=== PATIENT | male | born 1985 | race Caucasian/White ===

== ENCOUNTER 2021-07-24 06:26 | Emergency (ER) | payer OTHER, SELFPAY ==
--- NOTE | ~2021-07-24 | CT_ITS ---
EXAMINATION:CT diagnostic chest wo con DATE: 07/24/2021 08:30 INDICATION: Abnormal chest radiograph. TECHNIQUE: Computed tomography (CT) of the chest was performed without intravenous contrast. Automate d exposure control and iterative reconstruction technique were employed. The dose-length product (DLP ) was 152.56 mGy-cm. COMPARISON: Chest 2 views 07/24/2021 FINDINGS: The lungs demonstrate mild atelectasis. No pleural effusion. The heart size is normal. No p ericardial effusion. There is bilateral gynecomastia. There are healing fractures of the right second and third ribs. There is mild thoracic spondylosis. IMPRESSION: 1. Healing fractures of the right second and third ribs correlating with the chest radiograph abnorma lity. Reviewed, dictated and finalized at location A. IMPRESSION: 1. Healing fractures of the right second and third ribs correlating with the ch est radiograph abnormality.
--- NOTE | ~2021-07-24 | CT_ITS ---
EXAMINATION: CT brain wo con DATE: 07/24/2021 07:31 INDICATION: Confusion. TECHNIQUE: Computed tomography (CT) of the head was performed without intravenous contrast. The mA wa s adjusted according to patient size. Iterative reconstruction technique was employed. The dose-lengt h product was 605.33 mGy-cm. COMPARISON: None FINDINGS: There is no intracranial hemorrhage. The pituitary is enlarged with height of 11 mm. There is low attenuation in the central nhung. The ventricles are normal in size. The orbits are normal. The re is mild mucosal thickening in right sphenoid sinus. The mastoid air cells are normal. IMPRESSION: 1. Low attenuation in the central nhung, which may be seen with osmotic myelinolysis. The differential diagnosis includes other etiologies of encephalomalacia such as old hemorrhage. 2. Enlarged pituitary suspicious for neoplasm such as adenoma. Brain MRI without and with contrast is recommended. Reviewed, dictated and finalized at location A. IMPRESSION: 1. Low attenuation in the central nhung, which may be seen with osmotic myelinol ysis. The differential diagnosis includes other etiologies of encephalomalacia such as old hemorrhage. 2. Enlarged pituitary suspicious for neoplasm such as adenoma. Brain MRI withou t and with contrast is recommended.
--- NOTE | ~2021-07-24 | XR_ITS ---
EXAMINATION: XR chest 2V DATE: 07/24/2021 07:38 INDICATION: Altered mental status. TECHNIQUE: Frontal and lateral views of the chest were obtained on 3 radiographs. COMPARISON: None. FINDINGS: The patient is rotated on all views. There are nodules in right mid and upper lung zones. N o pleural effusion or pneumothorax. The heart size is normal. IMPRESSION: 1. Nodules in right mid and upper lung zones, which may be seen with infection or malignancy or heali ng rib fractures. Noncontrast chest CT is recommended. Reviewed, dictated and finalized at location A. IMPRESSION: 1. Nodules in right mid and upper lung zones, which may be seen with infection or malignancy or healing rib fractures. Noncontrast chest CT is recommended.
[2021-07-24 06:41] VITALS: BP 151/94; PULSE 92; RESP 18; TEMP 36.9; O2SAT 98
[2021-07-24 06:46] VITALS: BP 143/100; PULSE 91; RESP 18
--- NOTE | 2021-07-24 07:08 | ED.RECABL ---
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 History is not obtainable from the patient so all history is obtained from nursing staff and per chart review. Overnight, staff at the facility thought that the patient was confused, but this morning patient apparently is back to baseline. Due to the intermittent confusion, patient was sent here for evaluation. At the time of my evaluation, patient is oriented to person, not to place or time. He is responding appropriately, he cannot provide any history otherwise. He reports pain all over. He denies focal pain. Mother states that he has been going downhill for a while. He is no longer ambulatory. Patient does not have a primary care physician or neurologist. He was hospitalized at [facility] for 10 days this month for alcohol withdrawal per family. I contacted [facility] who states that patient was admitted their recently for acute alcohol withdrawl, DTs and was noted to have central pontine demyelination on MRI while inpatient. Pt was noted to be hyponatremic to 124 and per hospitalist there this was not correctly too quickly. They thought this to be chronic due to drinking history. Related Data Allergies Allergy/AdvReac Type Severity Reaction Status Date / Time No Known Allergies Allergy Verified 07/24/21 06:57 Review of Systems Review of Systems: ROS unobtainable: Yes unobtainable due to medical condition [facility] Social History Social History (Updated 07/24/21 @ 08:03 by Faith Membreno MD) Smoking status: Former smoker Alcohol intake: former Substance use: unknown Living arrangements: skilled nursing Gender identity (if verbalized by the patient): Male Exam Narrative: GENERAL: Awake, alert, conversant HEAD: Normocephalic, atraumatic. EYES: PERRLA and EOMI. ENT: Nares clear, no rhinorrhea or epistaxis. Mucous membranes moist. NECK: Supple. CHEST: No respiratory distress, breathing even and non labored HEART: Regular rate, sinus rhythm ABDOMEN:Non distended, non tender EXTREMITIES: Contractures, atrophy of the bilateral lower extremities SKIN: Warm, dry, no rash. NEURO:No focal deficits. Alert and oriented x1 Course Vital Signs Vital signs: Vital Signs Temperature 36.9 C 07/24/21 06:41 Pulse Rate 92 07/24/21 06:41 Respiratory Rate 18 07/24/21 06:41 Blood Pressure 151/94 H 07/24/21 06:41 Pulse Oximetry 98 07/24/21 06:41 Temperature 36.8 C 07/24/21 08:09 Pulse Rate 88 07/24/21 07:38 Respiratory Rate 18 07/24/21 07:38 Blood Pressure 158/108 H 07/24/21 07:38 Pulse Oximetry 98 07/24/21 07:38 MDM - Recheck/Abnormal Lab/Rx MDM Narrative Medical decision making narrative: Patient presenting for evaluation of elevated blood pressure readings. At the time of assessment, patient is mildly hypertensive 150 systolic. Otherwise, he seems to be at baseline after discussion with family. Laboratory results are reassuring. Mild leukocytosis, but no other nidus of infection. No acute kidney injury or electrolyte derangement. No evidence of abnormalities on CT head or chest x-ray. It took many attempts to get a urine sample, after I spoke with the patient's mother she did want us to do the urine catheterization although the patient continued to refuse it. Did obtain straight cath but after 3 attempts, there was quite a bit of blood present. Although it is not consistent with infection. Patient t
--- NOTE | 2021-07-24 07:21 | PC.NURSE ---
Went to CT.
[2021-07-24 07:38] VITALS: BP 158/108; PULSE 88; RESP 18; O2SAT 98
--- NOTE | 2021-07-24 08:04 | ECG_ITS ---
Measurements Intervals [place] Rate: 97 P: 47 GA: 136 QRS: 55 QRSD: 74 T: 56 QT: 385 QTc: 489 Interpretive Statements SINUS RHYTHM NORMAL ECG NO PREVIOUS ECG AVAILABLE FOR COMPARISON Electronically Signed On 07-24-2021 16:19:51 CDT by Eddie Nascimento M.D.
--- NOTE | 2021-07-24 08:07 | PC.NURSE ---
Attempted to straight cath patient. PT was uncooperative with staff. Attempted to obtain UA via straight cath and was unable to collect.
[2021-07-24 08:08] LABS: Basophils Percent Auto 0.4 % (0.2-1.2); Eosinophils Absolute Auto 0.2 K/mm3 (0-0.3); Eosinophils Percent Auto 1.4 % (0-4.4); Hematocrit 34.2 % (42.0-52.0); Hemoglobin 10.9 g/dL (14.0-18.0); Immature Granulocyte Absolute 0.05 K/mm3 (0.00-0.031); Immature Granulocyte Percent A 0.5 % (0-0.5); Lymphocytes Absolute Auto 1.18 K/mm3 (0.9-3.2); Lymphocytes Percent Auto 10.8 % (18.3-44.2); Mean Corpuscular HGB Conc 31.9 g/dl (32-36); Mean Corpuscular Hemoglobin 33.1 pg (26-34); Mean Platelet Volume 9.1 fl (7.4-10.4); Monocytes Absolute Auto 1.1 K/mm3 (0.1-0.6); Monocytes Percent Auto 9.6 % (2.6-8.5); Neutrophils Absolute Auto 8.5 K/mm3 (1.3-6.7); Neutrophils Percent Auto 77.3 % (45.5-73.1); Platelet Count Result 444 k/mm3 (150-375); Red Blood Count 3.29 M/mm3 (4.6-6.20); White Blood Count 10.9 K/mm3 (4.5-10.0)
[2021-07-24 08:09] VITALS: TEMP 36.8
[2021-07-24 08:11] LABS: Glucose Point of Care 101 mg/dl (65-105)
[2021-07-24 08:18] LABS: Alanine Aminotransferase 31 U/L (4-50); Albumin Level 3.4 g/dL (3.5-5.1); Alkaline Phosphatase 81 U/L (38-126); Anion Gap 7 mmol/L (8-16); Aspartate Amino Transferase 54 U/L (17-59); Bilirubin,Total 0.7 mg/dL (0.2-1.3); Blood Urea Nitrogen 9 mg/dL (9-20); Calcium 8.9 mg/dL (8.4-10.2); Carbon Dioxide 30 mmol/L (22-30); Chloride 104 mmol/L (98-107); Estimated Glomerular Filt Rate > 60; Glucose 115 mg/dL (65-110); Phosphorus 4.1 mg/dL (2.5-4.5); Potassium 3.6 mmol/L (3.4-5.0); Sodium 141 mmol/L (137-145)
[2021-07-24 08:25] LABS: Beta-Hydroxybutyrate/Acetoacetate 0.55 mmol/L (0.02-0.27)
[2021-07-24 08:32] LABS: Ammonia < 9 umol/L (9-30)
[2021-07-24] MEDS: SODIUM CHLORIDE 0.9% IV 500 ML 999 ML IV CONT (09:51)
[2021-07-24 11:38] LABS: Add Urine Microscopic? YES; Appearance Urine Cloudy (Clear); Bilirubin Urine Negative (Negative); Blood Urine 3+ (Negative); Color Urine Amber (Yellow); Glucose Urine UA Negative (Negative); Ketones Urine Trace mg/dL (Negative); Leukocyte Esterase Ur Negative LEU/UL (Negative); Mucus Urine Rare /lpf; Nitrate Urine Negative (Negative); Protein Urine 2+ mg/dL (Negative); RBC Urine >75 /hpf (0-2); Squamous Epithelial Cell Urine Rare /hpf (Few); Urobilinogen Urine Negative mg/dL (<2.0); WBC Urine 21-30 /hpf
[2021-07-24] MEDS: SODIUM CHLORIDE 0.9% IV 1,000 ML 999 ML IV CONT (11:42)
== END 2021-07-24 18:26 ==
PROVIDERS: Emergency Provider Emergency Medicine
DX: G37.9 Demyelinating disease of central nervous system, unspecified (principal); G40.909 Epilepsy, unspecified, not intractable, without status epilepticus; I10 Essential (primary) hypertension; G31.2 Degeneration of nervous system due to alcohol; Z87.891 Personal history of nicotine dependence
CPT/HCPCS: 36415; 70450; 71046; 71250; 80053; 81001; 82010; 82140; 82948; 83735; 84100; 85025; 87086; 93005; 96360; 96361; 99284; J7030; J7040

== ENCOUNTER 2021-08-13 12:14 | Emergency (ER) | payer OTHER, SELFPAY ==
[2021-08-13] VITALS (12 sets, daily range): BP systolic 129–151; BP diastolic 85–109; PULSE 76–98; RESP 14–19; TEMP 36.2; O2SAT 100
--- NOTE | ~2021-08-13 | CT_ITS ---
EXAMINATION: CT brain wo con DATE: 08/13/2021 15:33 INDICATION: Seizure TECHNIQUE: Computed tomography (CT) of the head was performed without intravenous contrast. The mA wa s adjusted according to patient size. Iterative reconstruction technique was employed. The dose-lengt h product was 605.33 mGy-cm. COMPARISON: 07/24/2021 FINDINGS: No acute intracranial hemorrhage or extra-axial fluid collection. No hydrocephalus, mass, or herniation. No acute ischemic infarct. Unremarkable dural venous sinus attenuation. No acute osseous abnormality. The aerated spaces are clear. Mild chronic atrophy. Enlarged pituitary, suspicious for neoplasm such as adenoma. Evolving hypodensi ty in the central nhung may reflect evolving encephalomalacia osmotic myelinolysis or prior hemorrhage . IMPRESSION: No acute intracranial process. Chronic findings detailed above. Prior recommendation for outpatient p ituitary MRI is unchanged. Reviewed, dictated and finalized at location K. IMPRESSION: No acute intracranial process. Chronic findings detailed above. Prior recommend ation for outpatient pituitary MRI is unchanged.
[2021-08-13 12:58] LABS: Basophils Percent Auto 0.5 % (0.2-1.2); Eosinophils Absolute Auto 0.2 K/mm3 (0-0.3); Hematocrit 35.3 % (42.0-52.0); Hemoglobin 10.9 g/dL (14.0-18.0); Immature Granulocyte Absolute 0.03 K/mm3 (0.00-0.031); Immature Granulocyte Percent A 0.5 % (0-0.5); Lymphocytes Absolute Auto 1.67 K/mm3 (0.9-3.2); Lymphocytes Percent Auto 25.2 % (18.3-44.2); Mean Corpuscular HGB Conc 30.9 g/dl (32-36); Mean Corpuscular Hemoglobin 31.1 pg (26-34); Mean Corpuscular Volume 100.6 fl (80-100); Mean Platelet Volume 9.1 fl (7.4-10.4); Monocytes Absolute Auto 0.9 K/mm3 (0.1-0.6); Monocytes Percent Auto 13.1 % (2.6-8.5); Neutrophils Absolute Auto 3.8 K/mm3 (1.3-6.7); Neutrophils Percent Auto 57.7 % (45.5-73.1); Platelet Count Result 346 k/mm3 (150-375); Red Blood Count 3.51 M/mm3 (4.6-6.20); Red Cell Distribution Width 14.3 % (11.5-14.5); White Blood Count 6.6 K/mm3 (4.5-10.0)
[2021-08-13 13:13] LABS: Alanine Aminotransferase 16 U/L (6-50); Albumin Level 3.2 g/dL (3.5-5.1); Alkaline Phosphatase 257 U/L (38-126); Anion Gap 4 mmol/L (8-16); Aspartate Amino Transferase 25 U/L (17-59); Bilirubin,Total 0.3 mg/dL (0.2-1.3); Blood Urea Nitrogen 6 mg/dL (9-20); Calcium 8.6 mg/dL (8.4-10.2); Carbon Dioxide 29 mmol/L (22-30); Chloride 105 mmol/L (98-107); Estimated CRCL calculation 201 ml/min; Estimated Glomerular Filt Rate > 60; Glucose 94 mg/dL (65-110); Potassium 3.3 mmol/L (3.4-5.0); Sodium 138 mmol/L (137-145)
[2021-08-13 13:16] LABS: Phenytoin Dilantin < 3 ug/mL (10-20)
[2021-08-13 13:19] LABS: Valproic Acid < 10.0 ug/mL (50-120)
--- NOTE | 2021-08-13 14:56 | ED.SEIZURE ---
HPI - Seizure General Chief Complaint: Seizure Stated Complaint: SEIZURES Time Seen by Provider: 08/13/21 12:17 Source: EMS and RN notes reviewed Mode of arrival: EMS History of Present Illness HPI Narrative: Patient brought from [facility] by ambulance because of seizure-like activity. 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 Patient has been at the [facility] for the last 2 to 3 weeks, transferred from [facility] to the [facility]. For nonspecific reason. Patient used to live with his mom prior to hospitalization. The mother is telling me that patient been having intermittent seizures for almost 1 year, never been on any antiseizure medication. The [facility] staff telling me that patient had at least 4 episodes of seizure since 830 this morning, received diazepam 10 mg rectally was some improvement then 1 hour later seizure is back x3. Currently patient at his baseline, knowing his name only. Otherwise disoriented. Patient cannot walk or stand up without assistance Seizure History: Yes Related Data Allergies Allergy/AdvReac Type Severity Reaction Status Date / Time No Known Allergies Allergy Verified 07/24/21 06:57 Review of Systems Review of Systems: ROS unobtainable: Yes unobtainable due to mental status PMFSH Social History Social History Smoking status: Former smoker Alcohol intake: former Substance use: unknown Gender identity (if verbalized by the patient): Male Exam Narrative: General appearance: Well-developed, well-nourished Skin: Normal color Head: Normocephalic, nontraumatic Eyes: Clear conjunctiva ENT: Oropharynx normal, ears normal, nose normal Neck: Supple, nontender Chest and respiratory: Airway patent, no respiratory distress, no accessory muscle use Heart: Regular rate/rhythm Abdomen: Soft, nontender, no organomegaly, quiet bowel sounds Vascular: Normal peripheral pulses, normal capillary refill. Musculoskeletal: Normal range of motion, nontender back Neurologic: Alert and oriented to his name only Course Course Emergency Course: Seizure-like activity, unlikely related to alcohol. Patient been at the [facility] for the last 2 to 3 weeks, no access to alcohol Consultations Consultation #1: Dr. De Souza, neurologist at [facility] Recommends to send patient back to [facility] on Keppra 500 twice daily. Date: 08/13/21 Time: 16:50 Vital Signs Vital signs: Vital Signs Temperature 36.2 C L 08/13/21 12:20 Pulse Rate 80 08/13/21 12:20 Respiratory Rate 16 08/13/21 12:20 Blood Pressure 129/95 H 08/13/21 12:20 Pulse Oximetry 100 08/13/21 12:20 Temperature 36.2 C L 08/13/21 12:20 Pulse Rate 77 08/13/21 13:01 Respiratory Rate 15 08/13/21 13:01 Blood Pressure 146/107 H 08/13/21 13:01 Pulse Oximetry 100 08/13/21 12:46 MDM - Seizure Differential Diagnosis Differential diagnosis: Likely generalized seizure Lab Data Result diagrams: 08/13/21 12:53 08/13/21 12:53 Labs: Lab Results 08/13/21 08/13/21 08/13/21 Range/Units 12:53 12:53 12:53 WBC 6.6 (4.5-10.0) K/mm3 RBC 3.51 L (4.6-6.20) M/mm3 Hgb 10.9 L (14.0-18.0) g/dL Hct 35.3 L (42.0-52.0) % MCV 100.6 H (80-100) fl MCH 31.1 (26-34) pg MCHC 30.9 L (32-36) g/dl RDW 14.3 (11.5-14.5) % Plt Count 346 (150-375) k/mm3 MPV 9.1 (7.4-10.4) fl Immature Gran % (
[2021-08-13] MEDS: levETIRAcetam 1000MG/NACL100ML 1,000 MG/100 ML BAG 400 MG IVPB (15:33)
[2021-08-13 15:56] LABS: SARS-CoV-2 RNA PCR Negative
--- NOTE | 2021-08-13 17:01 | PC.NURSE ---
Patient care report called to EMILY Jane at [facility] and all questions answered at this time. Ambulance dispatched for transport back to facility.
== END 2021-08-13 20:52 ==
PROVIDERS: Emergency Provider Emergency Medicine
DX: G37.9 Demyelinating disease of central nervous system, unspecified (principal); G40.909 Epilepsy, unspecified, not intractable, without status epilepticus; Z20.822 Contact with and (suspected) exposure to COVID-19; I10 Essential (primary) hypertension; Z87.891 Personal history of nicotine dependence
CPT/HCPCS: 36415; 70450; 80053; 80164; 80185; 85025; 96374; 99284; C9803; J1953; U0003; U0005

== ENCOUNTER 2021-10-27 11:46 | Inpatient (IN) | payer OTHER, SELFPAY ==
[2021-10-27] VITALS (61 sets, daily range): BP systolic 101–114; BP diastolic 59–82; PULSE 81–93; RESP 11–30; TEMP 36.6; O2SAT 96–100; BMI 18.6
--- NOTE | ~2021-10-27 | XR_ITS ---
EXAMINATION: XR chest 1V portable INDICATION: Weakness and back pain TECHNIQUE: Portable AP chest at 1245 hours COMPARISON: 07/24/2021 FINDINGS: There is a small left pleural effusion. There are airspace opacities of the left lung base and left perihilar region. No pneumothorax is identified. The cardiomediastinal silhouette is normal. IMPRESSION: 1. Small left pleural effusion with atelectasis versus pneumonia of the left lung base. Left perihila r opacity is likely infectious or inflammatory as well. Reviewed, dictated and finalized at location L. IMPRESSION: 1. Small left pleural effusion with atelectasis versus pneumonia of the left olga lidia ng base. Left perihilar opacity is likely infectious or inflammatory as well.
--- NOTE | 2021-10-27 12:15 | ECG_ITS ---
Measurements Intervals [place] Rate: 88 P: 60 CT: 161 QRS: 42 QRSD: 90 T: 46 QT: 380 QTc: 460 Interpretive Statements SINUS RHYTHM BORDERLINE T WAVE ABNORMALITY- ANTERIOR LEADS BASELINE ARTIFACT- I, III, AVL BORDERLINE ECG Electronically Signed On 10-27-2021 13:29:39 CDT by Job Molina D.O.
[2021-10-27] MEDS: SODIUM CHLORIDE 0.9% IV 1,000 ML 999 ML IV CONT (12:21)
--- NOTE | 2021-10-27 12:25 | ED.GENADULT ---
HPI - General Adult General Chief complaint: Altered Mental Status Stated complaint: ALOC Time Seen by Provider: 10/27/21 12:00 History of Present Illness HPI narrative: Patient is a 36-year-old male who presents ER from his intermediate with reports of weakness. There is no other specific complaints reported by the intermediate or by the patient. Patient is unsure why he is even here. He is awake and alert to self and place but cannot give me the year or month. He then verbalizes that he has a desire to kill himself because he is bedridden and weak with an unknown demyelinating process. He reports he is desolate and his mom is about to and is really depressed his mood. He reports if he could get his hands on a gun he would end his own life. He has no access to guns in the intermediate. Reports no previous attempts to end his own life. Related Data Home Medications Medication Instructions Recorded Confirmed chlordiazepoxide HCl 10 mg PO DAILY PRN Anxiety 10/27/21 10/27/21 chlordiazepoxide HCl 10 mg capsule 10 mg PO BID 10/27/21 10/27/21 clonidine HCl 0.1 mg tablet 0.1 mg PO Q12H PRN Blood Pressure 10/27/21 10/27/21 collagenase clostridium histo. 250 1 applic topical DAILY 10/27/21 10/27/21 unit/gram topical ointment (Santyl) collagenase clostridium histo. 250 1 applic topical DAILY 10/27/21 10/27/21 unit/gram topical ointment (Santyl) diazepam 5 mg-7.5 mg-10 mg rectal 5 mg RECTAL DAILY PRN Seizure 10/27/21 10/27/21 kit Activity doxycycline hyclate 100 mg capsule 100 mg PO BID 10/27/21 10/27/21 gabapentin 300 mg capsule 300 mg PO TID 10/27/21 10/27/21 hydrocodone 5 mg-acetaminophen 325 1 tablet PO BID PRN Pain 10/27/21 10/27/21 mg tablet ibuprofen 200 mg tablet 200 mg PO TID PRN Pain 10/27/21 10/27/21 magnesium 200 mg tablet 400 mg PO DAILY 10/27/21 10/27/21 metoprolol succinate 100 mg 100 mg PO DAILY 10/27/21 10/27/21 tablet,extended release 24 hr multivitamin,tx-minerals 1 tablet PO DAILY 10/27/21 10/27/21 tamsulosin 0.4 mg capsule 0.4 mg PO PCHS 10/27/21 10/27/21 thiamine HCl (vitamin B1) 100 mg 100 mg PO DAILY 10/27/21 10/27/21 tablet ziprasidone HCl 20 mg capsule 20 mg PO DAILY 10/27/21 10/27/21 (Geodon) Allergies Allergy/AdvReac Type Severity Reaction Status Date / Time No Known Allergies Allergy Verified 10/27/21 11:59 Review of Systems Review of Systems: All systems reviewed & are unremarkable except as noted in HPI and below Constitutional: Constitutional: Denies chills, Reports fatigue and Denies fever(s) ENT: Denies nasal congestion and Denies sore throat Cardiovascular: Cardiovascular: Denies chest pain, Denies rapid heart rate and Denies radiating jaw, neck or arm pain Respiratory: Respiratory: Denies cough and Denies dyspnea Gastrointestinal: Gastrointestinal: Denies abdominal pain, Denies nausea and Denies vomiting Musculoskeletal: Musculoskeletal: Denies arthralgias, Denies joint swelling and Denies muscle cramps Neurologic: Reports weakness (chronic BLE) Psychiatric: Psychiatric: Denies anxiety, Reports depression, Denies homicidal ideation and Reports suicidal ideation [facility] Past Medical History Medical History (Updated 10/28/21 @ 21:45 by Gabino Galicia MD) Demyelinating disease of central nervous system Hypertension Pulmonary embolism Seizure disorder Surgical History Surgical History Amputated finger Family History Family History (Updated 10/27/21 @ 23:55 by Jamilah Pardo PA-C) Sibling Accidental Father Overdose Social History Social History (Updated 10/27/21 @ 23:55 by Jamilah Pardo PA-C) Social History: Surrogate medical decision maker: Shweta Whitlock, mother. Code status: Full code. Smoking status: Former smoker Tobacco type: cigarettes Alcohol intake: former Substance use: former Additional living arrangements comments: Resident
[2021-10-27 13:00] LABS: Basophils Percent Auto 0.2 % (0.2-1.2); Eosinophils Absolute Auto 0.2 K/mm3 (0-0.3); Eosinophils Percent Auto 1.3 % (0-4.4); Hematocrit 32.9 % (42.0-52.0); Immature Granulocyte Absolute 0.09 K/mm3 (0.00-0.031); Immature Granulocyte Percent A 0.6 % (0-0.5); Lymphocytes Absolute Auto 1.72 K/mm3 (0.9-3.2); Lymphocytes Percent Auto 12.2 % (18.3-44.2); Mean Corpuscular HGB Conc 30.4 g/dl (32-36); Mean Corpuscular Hemoglobin 27.8 pg (26-34); Mean Corpuscular Volume 91.4 fl (80-100); Mean Platelet Volume 8.4 fl (7.4-10.4); Monocytes Absolute Auto 1.3 K/mm3 (0.1-0.6); Monocytes Percent Auto 9.3 % (2.6-8.5); Neutrophils Absolute Auto 10.8 K/mm3 (1.3-6.7); Neutrophils Percent Auto 76.4 % (45.5-73.1); Platelet Count Result 586 k/mm3 (150-375); White Blood Count 14.1 K/mm3 (4.5-10.0)
[2021-10-27 13:04] LABS: Ethanol < 10 mg/dL (<10)
[2021-10-27 13:05] LABS: Alanine Aminotransferase 46 U/L (6-50); Alkaline Phosphatase 116 U/L (38-126); Anion Gap 7 mmol/L (8-16); Aspartate Amino Transferase 32 U/L (17-59); Bilirubin,Total 0.3 mg/dL (0.2-1.3); Blood Urea Nitrogen 4 mg/dL (9-20); Calcium 8.8 mg/dL (8.4-10.2); Carbon Dioxide 31 mmol/L (22-30); Chloride 100 mmol/L (98-107); Estimated CRCL calculation 185 ml/min; Estimated Glomerular Filt Rate > 60; Glucose 112 mg/dL (65-110); Potassium 3.7 mmol/L (3.4-5.0); Sodium 138 mmol/L (137-145)
[2021-10-27 13:27] LABS: Appearance Urine Clear (Clear); Bilirubin Urine Negative (Negative); Blood Urine Negative (Negative); Color Urine Yellow (Yellow); Glucose Urine UA Negative (Negative); Ketones Urine Negative (Negative); Leukocyte Esterase Ur Negative LEU/UL (Negative); Nitrate Urine Negative (Negative); Protein Urine Negative (Negative)
[2021-10-27 13:30] LABS: Add Urine Microscopic? NO
[2021-10-27 13:36] LABS: Amphetamine Screen Urine Negative (Negative); Barbiturate Screen Urine Negative (Negative); Benzodiazepines Screen Urine Positive (Negative); Cannabinoid Screen Urine Negative (Negative); Cocaine Screen Urine Negative (Negative); Methadone Screen Urine Negative (Negative); Opiate Screen Urine Positive (Negative); Phencyclidine Screen Urine Negative (Negative)
[2021-10-27 13:38] LABS: Thyroid Stimulating Hormone 0.515 uIU/mL (0.465-4.680)
[2021-10-27 14:23] LABS: Folic Acid 4.6 ng/mL (2.76->20)
[2021-10-27 15:12] LABS: SARS-CoV-2 RNA PCR Negative
[2021-10-27] MEDS: HYDROcodone/acetaminophen (*CRX) 5-325 MG TABLET 1 TAB PO ×2 (16:16→22:49)
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
[2021-10-27] MEDS: MORPHINE SULFATE (*CRX) 4 MG/ML INJ IV PUSH (19:22)
--- NOTE | 2021-10-27 20:16 | ADMGEN ---
This patient, Pineda Castillo, was admitted to Virtual Bed 3rd Floor-2 @1950. Patient/family oriented to hospital policies and general routines including ID bracelet, bed and alarms, visiting hours, pain management, procedures, bathroom and other care routines, personal items, smoking policy, room service/diet, and visiting hours. Information on how to activate the Rapid Response Team has been discussed. Patient/Family are encouraged to report perceived risks to care and to ask questions if they do not understand what they are told or what they should do.
--- NOTE | 2021-10-27 23:02 | PC.NURSE ---
This patient, Pineda Castillo, was received from [[id number]] on 10/27/21 at 2225. Patient/family oriented to unit policies and routines. SI sitter at bedside per protocol.
[2021-10-28] VITALS (7 sets, daily range): BP systolic 97–110; BP diastolic 63–83; PULSE 81–101; RESP 14–16; TEMP 36.5–36.9; O2SAT 96–100
[2021-10-28] MEDS: TAMSULOSIN HCL 0.4 MG CAPSULE PO (01:10)
[2021-10-28] MEDS: levETIRAcetam 500 MG TABLET PO ×3 (01:10→20:31)
[2021-10-28 04:26] LABS: Hematocrit 33.4 % (42.0-52.0); Hemoglobin 10.4 g/dL (14.0-18.0); Mean Corpuscular HGB Conc 31.1 g/dl (32-36); Mean Corpuscular Hemoglobin 28.3 pg (26-34); Mean Corpuscular Volume 90.8 fl (80-100); Mean Platelet Volume 8.4 fl (7.4-10.4); Platelet Count Result 546 k/mm3 (150-375); Red Blood Count 3.68 M/mm3 (4.6-6.20); Red Cell Distribution Width 13.8 % (11.5-14.5); White Blood Count 10.8 K/mm3 (4.5-10.0)
[2021-10-28 04:37] LABS: INR 2.2; Prothrombin Time 23.6 Seconds (11.1-14.7)
[2021-10-28 04:37] LABS: Alanine Aminotransferase 41 U/L (6-50); Albumin Level 2.8 g/dL (3.5-5.1); Alkaline Phosphatase 114 U/L (38-126); Anion Gap 7 mmol/L (8-16); Aspartate Amino Transferase 26 U/L (17-59); Bilirubin,Total 0.3 mg/dL (0.2-1.3); Blood Urea Nitrogen 3 mg/dL (9-20); Carbon Dioxide 31 mmol/L (22-30); Chloride 102 mmol/L (98-107); Estimated CRCL calculation 143 ml/min; Estimated Glomerular Filt Rate > 60; Glucose 96 mg/dL (65-110); Magnesium 1.7 mg/dL (1.6-2.3); Potassium 3.7 mmol/L (3.4-5.0); Sodium 140 mmol/L (137-145)
[2021-10-28] MEDS: GABAPENTIN 300 MG CAPSULE PO ×2 (09:32→13:31)
[2021-10-28] MEDS: ZIPRASIDONE HCL 20 MG CAPSULE PO (09:33)
[2021-10-28] MEDS: THIAMINE HCL 100 MG TABLET PO (09:33)
[2021-10-28] MEDS: THERAPEUTIC MULTIVITAMINS/MINERALS TAB (*BKC) 1 TABLET PO (09:33)
[2021-10-28] MEDS: MAGNESIUM OXIDE 400 MG TABLET PO (09:33)
[2021-10-28] MEDS: COLLAGENASE OINT 30 GM TUBE 1 APPLIC TOPICAL (09:34)
[2021-10-28] MEDS: ENOXAPARIN 40 MG/0.4 ML SYRINGE SUB-Q (09:34)
[2021-10-28] MEDS: METOPROLOL SUCCINATE EXT REL 100 MG TABCR PO (09:35)
[2021-10-28] MEDS: chlordiazePOXIDE (*CRX) 10 MG CAPSULE PO ×2 (09:41→20:31)
[2021-10-28] MEDS: HYDROcodone/acetaminophen (*CRX) 5-325 MG TABLET 1 TAB PO ×2 (11:40→21:49)
--- NOTE | 2021-10-28 12:36 | PM.IMPN ---
Progress Note: A&P Assessment and Plan (1) Pneumonia involving left lung: Code(s): J18.9 - Pneumonia, unspecified organism Status: Acute Assessment and Plan: Continue ceftriaxone and azithromycin. Attempt sputum for culture. Check urinary antigens. (2) Suicidal ideation: Code(s): R45.851 - Suicidal ideations Status: Acute Assessment and Plan: Patient has continuous, active suicidal thoughts with plans to shoot himself with a gun. When asked if he had access to a gun he told me ?not yet but I am working on it.? Initiate suicide precautions. Crisis will need to be consulted once medically cleared. (3) Hallucination: Code(s): R44.3 - Hallucinations, unspecified Status: Acute Assessment and Plan: Patient seems to be suffering from hallucinations and psychosis. Continue Geodon. Sitter in room. (4) Seizure disorder: Code(s): G40.909 - Epilepsy, unspecified, not intractable, without status epilepticus Status: Acute Assessment and Plan: Continue levetiracetam. (5) Hypertension: Code(s): I10 - Essential (primary) hypertension Status: Acute Assessment and Plan: Blood pressures were reviewed and they are stable. Antihypertensives will be reviewed and resumed as appropriate. (6) Demyelinating disease of central nervous system: Code(s): G37.9 - Demyelinating disease of central nervous system, unspecified Status: Acute Assessment and Plan: Poorly documented in the patient cannot provide me with any specifics. He does have some pressure wounds on his feet and ankles thus will continue with protective boots. Wound nurse consulted for further recommendations. Subjective Date/time seen: 10/28/21 12:36 No new complaints Exam Narrative: General: Thin and frail. Weight: 58.9 kg. BMI: 18.6. HEENT: PERRL, EOMI. Conjunctivae anicteric. Tacky mucous membranes. Black hairy tongue. Neck: Supple. No lymphadenopathy. Respiratory: Respirations are nonlabored and lungs are clear to auscultation. Cardiovascular: Regular rate and rhythm with S1-S2. Gastrointestinal: Abdomen is soft, flat nontender, and nondistended with positive bowel sounds. No organomegaly. Skin: Warm and dry. Generalized pallor. There are some pressure points noted on the right lateral ankle and a dry eschar on the lateral side of the right foot. His left foot is wrapped and he would not let me unwrap it for exam. Extremities: No cyanosis, clubbing, or edema. Lower extremities are atrophied. Radial and pedal pulses intact. Neurological: Alert and oriented to name, age, and date of . He is aware that he is in the hospital but does not know why he was brought here. Cranial nerves 2-12 are grossly intact. Speech is clear. No facial asymmetry. 4/5 strength in the upper extremities though his effort was not the best. He is not able to lift his legs off of the bed but he was able to externally rotate his hips somewhat and bend his right knee up. He reports being neurovascular intact in the lower limbs. Psychiatric: Poor eye contact. Despondent with depressed mood. Speech is pressured with tangential thoughts, occasionally circumferential though he is not a great historian. Objective Data Vital Signs Vital Signs: Vital Signs - 24 hr 10/27/21 13:00 10/27/21 13:01 10/27/21 13:15 Temperature Pulse Rate 90 87 88 Respiratory Rate 11 L 16 21 H Blood Pressure 111/78 Pulse Oximetry 100 99 98 Oxygen Delivery 10/27/21 13:16 10/27/21 13:30 10/27/21 13:31 Temperature Pulse Rate 88 87 90 Respiratory Rate 19 19 17 Blood Pressure 101/69 101/68 Pulse Oximetry 98 100 99 Oxygen Delivery 10/27/21 13:45 10/27/21 13:46 10/27/21 14:00 Temperature Pulse Rate 86 87 86 Respiratory Rate 18 21 H 17 Blood Pressure 105/71 Pulse Oximetry 99 99 100 Oxygen Delivery 10/27/21 14:01 10/27/21 14:15 10/27/21 14:30 Temperature
--- NOTE | 2021-10-28 15:35 | PC.NURSE ---
Spoke to vocational rehabilitation administrator at [facility] for more insight into patient history. Per vocational rehabilitation administrator, patient has been a patient at [facility] for the past 3-4 months. He came from a hospital in [place] where he had been treated for alcohol withdrawal. She related that the patient had told her in the past that he was a heavy alcohol user. Patient has displayed bizarre and paranoid behavior since his admission to [facility]. A psychiatric nurse practitioner at [facility] recently prescribed Geodon for psychosis. She relayed that a friend of the patient's had recently called and had insisted that this was new behavior for the patient. Patient's sister had of an overdose. She also stated that the patient had told her that his mother is heavy alcohol user as well. According to the adminstrator, the patient has no healthcare power of securities attorney. RN also spoke to patient's mother, Shweta. Shweta said that he has no history of paranoid or bizarre behavior. She said that he had been treated at a hospital in [place] for alcohol withdrawal. She does not know when that admission was. She also did not know how long the patient had been at [facility]. Shweta did mention that he has dabbled in alot of drugs including meth, marijuana, and mushrooms. She said that he started young, but does not know if there was any recent drug use. The patient had been living with her prior to being admitted for alcohol withdrawal and being sent to [facility]. He became too much for her to care for, frequently falling in her home. She was unaware of any psychiatric history, but then stated that she had a form giving permission for psychotropic medications . She does not know who is healthcare power of securities attorney is. She was unaware that he had a diagnosis of demyelination of the central nervous system. She related that she didn't know the reason the patient can not walk at a young age, or the reason for the decline in his condition. Mother did say that there is a significant history of clotting disorder on the patient's paternal side of the family.
[2021-10-29] VITALS (7 sets, daily range): BP systolic 99–108; BP diastolic 63–70; PULSE 84–98; RESP 14–22; TEMP 36.5–36.9; O2SAT 95–100
[2021-10-29] MEDS: HYDROcodone/acetaminophen (*CRX) 5-325 MG TABLET 1 TAB PO ×3 (05:17→20:22)
[2021-10-29] MEDS: COLLAGENASE OINT 30 GM TUBE 1 APPLIC TOPICAL (07:48)
[2021-10-29] MEDS: THIAMINE HCL 100 MG TABLET PO (10:25)
[2021-10-29] MEDS: chlordiazePOXIDE (*CRX) 10 MG CAPSULE PO ×2 (10:25→20:22)
[2021-10-29] MEDS: ZIPRASIDONE HCL 20 MG CAPSULE PO (10:25)
[2021-10-29] MEDS: METOPROLOL SUCCINATE EXT REL 100 MG TABCR PO (10:25)
[2021-10-29] MEDS: GABAPENTIN 300 MG CAPSULE PO ×2 (10:25→13:28)
[2021-10-29] MEDS: THERAPEUTIC MULTIVITAMINS/MINERALS TAB (*BKC) 1 TABLET PO (10:26)
[2021-10-29] MEDS: MAGNESIUM OXIDE 400 MG TABLET PO (10:26)
[2021-10-29] MEDS: levETIRAcetam 500 MG TABLET PO ×2 (10:26→20:24)
[2021-10-29] MEDS: ENOXAPARIN 40 MG/0.4 ML SYRINGE SUB-Q (10:27)
--- NOTE | 2021-10-29 10:36 | PM.IMPN ---
Progress Note: A&P Assessment and Plan (1) Pneumonia involving left lung: Code(s): J18.9 - Pneumonia, unspecified organism Status: Acute Assessment and Plan: Continue ceftriaxone and azithromycin. Attempt sputum for culture. Check urinary antigens. (2) Suicidal ideation: Code(s): R45.851 - Suicidal ideations Status: Acute Assessment and Plan: Patient has continuous, active suicidal thoughts with plans to shoot himself with a gun. When asked if he had access to a gun he told me ?not yet but I am working on it.? Initiate suicide precautions. Crisis will need to be consulted once medically cleared. (3) Hallucination: Code(s): R44.3 - Hallucinations, unspecified Status: Acute Assessment and Plan: Patient seems to be suffering from hallucinations and psychosis. Continue Geodon. Sitter in room. (4) Seizure disorder: Code(s): G40.909 - Epilepsy, unspecified, not intractable, without status epilepticus Status: Acute Assessment and Plan: Continue levetiracetam. (5) Hypertension: Code(s): I10 - Essential (primary) hypertension Status: Acute Assessment and Plan: Blood pressures were reviewed and they are stable. Antihypertensives will be reviewed and resumed as appropriate. (6) Demyelinating disease of central nervous system: Code(s): G37.9 - Demyelinating disease of central nervous system, unspecified Status: Acute Assessment and Plan: Poorly documented in the patient cannot provide me with any specifics. He does have some pressure wounds on his feet and ankles thus will continue with protective boots. Wound nurse consulted for further recommendations. Subjective Date/time seen: 10/29/21 10:36 No new complaints. Exam Narrative: General: Thin and frail. Weight: 58.9 kg. BMI: 18.6. HEENT: PERRL, EOMI. Conjunctivae anicteric. Tacky mucous membranes. Black hairy tongue. Neck: Supple. No lymphadenopathy. Respiratory: Respirations are nonlabored and lungs are clear to auscultation. Cardiovascular: Regular rate and rhythm with S1-S2. Gastrointestinal: Abdomen is soft, flat nontender, and nondistended with positive bowel sounds. No organomegaly. Skin: Warm and dry. Generalized pallor. There are some pressure points noted on the right lateral ankle and a dry eschar on the lateral side of the right foot. His left foot is wrapped and he would not let me unwrap it for exam. Extremities: No cyanosis, clubbing, or edema. Lower extremities are atrophied. Radial and pedal pulses intact. Neurological: Alert and oriented to name, age, and date of . He is aware that he is in the hospital but does not know why he was brought here. Cranial nerves 2-12 are grossly intact. Speech is clear. No facial asymmetry. 4/5 strength in the upper extremities though his effort was not the best. He is not able to lift his legs off of the bed but he was able to externally rotate his hips somewhat and bend his right knee up. He reports being neurovascular intact in the lower limbs. Psychiatric: Poor eye contact. Despondent with depressed mood. Speech is pressured with tangential thoughts, occasionally circumferential though he is not a great historian. Objective Data Vital Signs Vital Signs: Vital Signs - 24 hr 10/28/21 11:49 10/28/21 15:58 10/28/21 20:00 Temperature 97.7 F 98.4 F 98.3 F Pulse Rate 86 84 95 Respiratory Rate 14 16 14 Blood Pressure 110/75 98/73 L 97/83 L Pulse Oximetry 98 98 100 Oxygen Delivery 10/28/21 20:00 10/29/21 00:00 10/29/21 08:00 Temperature 98.4 F 97.7 F Pulse Rate 95 89 84 Respiratory Rate 14 16 18 Blood Pressure 99/65 L 108/69 Pulse Oximetry 100 95 100 Oxygen Delivery Room Air 10/29/21 08:00 10/29/21 10:25 10/29/21 10:35 Temperature Pulse Rate 95 98 98 Respiratory Rate 14 Blood Pressure 102/70 Pulse Oximetry 100 Oxygen Delivery Room Air Intake/Output
--- NOTE | 2021-10-29 12:37 | PC.NURSE ---
Pt's aunt and uncle, Myla and Erlin Chinchillaton, visited. Pt was obviously comforted by their presence. Myla provided more history regarding extensive drug and alcohol use in patient's immediate family. She did corroborate what the Rescue servicenow administrator stated about the patient's mother being in very frail health and also a heavy alcohol user. Currently, the patient's mother is his healthcare power of compliance attorney, according to Myla. She and her are considering whether they would be willing to take on this role, but they are unsure about what this would mean for the current relationship between the sisters. Myla is also unsure about whether she is willing to become intimately involved in the patient's healthcare decision making, as she has created distance purposely in the past. Besides the mother, there is a brother, but he is difficult to contact and would not be a reliable power of compliance attorney, according to Myla. Contact information for Myla and Erlin Zabala: Myla [phone] Erlin [phone]
[2021-10-30] VITALS: BP 102/65; PULSE 87; RESP 16; TEMP 36.8; O2SAT 94
[2021-10-30] MEDS: HYDROcodone/acetaminophen (*CRX) 5-325 MG TABLET 1 TAB PO ×4 (03:14→21:16)
[2021-10-30 04:36] LABS: Hematocrit 31.3 % (42.0-52.0); Hemoglobin 9.9 g/dL (14.0-18.0); Mean Corpuscular HGB Conc 31.6 g/dl (32-36); Mean Corpuscular Hemoglobin 28.4 pg (26-34); Mean Corpuscular Volume 89.9 fl (80-100); Mean Platelet Volume 8.5 fl (7.4-10.4); Platelet Count Result 594 k/mm3 (150-375); Red Blood Count 3.48 M/mm3 (4.6-6.20); Red Cell Distribution Width 14.4 % (11.5-14.5); White Blood Count 12.2 K/mm3 (4.5-10.0)
[2021-10-30 04:52] LABS: Alanine Aminotransferase 25 U/L (6-50); Albumin Level 2.9 g/dL (3.5-5.1); Alkaline Phosphatase 121 U/L (38-126); Anion Gap 7 mmol/L (8-16); Aspartate Amino Transferase 22 U/L (17-59); Bilirubin,Total 0.3 mg/dL (0.2-1.3); Blood Urea Nitrogen 3 mg/dL (9-20); Calcium 8.8 mg/dL (8.4-10.2); Carbon Dioxide 31 mmol/L (22-30); Chloride 99 mmol/L (98-107); Estimated CRCL calculation 142 ml/min; Estimated Glomerular Filt Rate > 60; Glucose 117 mg/dL (65-110); Potassium 3.7 mmol/L (3.4-5.0); Sodium 137 mmol/L (137-145)
[2021-10-30 08:00] VITALS: BP 111/79; PULSE 79; RESP 16; TEMP 36.5; O2SAT 97
[2021-10-30] MEDS: ENOXAPARIN 40 MG/0.4 ML SYRINGE SUB-Q (09:02)
[2021-10-30] MEDS: GABAPENTIN 300 MG CAPSULE PO ×3 (09:02→17:11)
[2021-10-30 09:03] VITALS: PULSE 85
[2021-10-30] MEDS: MAGNESIUM OXIDE 400 MG TABLET PO (09:03)
[2021-10-30] MEDS: METOPROLOL SUCCINATE EXT REL 100 MG TABCR PO (09:03)
[2021-10-30] MEDS: THERAPEUTIC MULTIVITAMINS/MINERALS TAB (*BKC) 1 TABLET PO (09:03)
[2021-10-30] MEDS: ZIPRASIDONE HCL 20 MG CAPSULE PO (09:03)
[2021-10-30] MEDS: levETIRAcetam 500 MG TABLET PO ×2 (09:04→20:42)
[2021-10-30] MEDS: THIAMINE HCL 100 MG TABLET PO (09:04)
[2021-10-30] MEDS: COLLAGENASE OINT 30 GM TUBE 1 APPLIC TOPICAL (09:05)
[2021-10-30] MEDS: chlordiazePOXIDE (*CRX) 10 MG CAPSULE PO ×2 (09:11→21:16)
[2021-10-30 12:05] VITALS: BMI 18.4
--- NOTE | 2021-10-30 12:45 | PM.IMPN ---
Progress Note: A&P Assessment and Plan (1) Pneumonia involving left lung: Code(s): J18.9 - Pneumonia, unspecified organism Status: Acute Assessment and Plan: Continue ceftriaxone and azithromycin. Attempt sputum for culture. Check urinary antigens. (2) Suicidal ideation: Code(s): R45.851 - Suicidal ideations Status: Acute Assessment and Plan: Patient has continuous, active suicidal thoughts with plans to shoot himself with a gun. When asked if he had access to a gun he told me ?not yet but I am working on it.? Initiate suicide precautions. Patient is currently medically cleared and stable and ready to be discharge. Crisis can evaluate the patient (3) Hallucination: Code(s): R44.3 - Hallucinations, unspecified Status: Acute Assessment and Plan: Patient seems to be suffering from hallucinations and psychosis. Continue Geodon. Sitter in room. (4) Seizure disorder: Code(s): G40.909 - Epilepsy, unspecified, not intractable, without status epilepticus Status: Acute Assessment and Plan: Continue levetiracetam. (5) Hypertension: Code(s): I10 - Essential (primary) hypertension Status: Acute Assessment and Plan: Blood pressures were reviewed and they are stable. Antihypertensives will be reviewed and resumed as appropriate. (6) Demyelinating disease of central nervous system: Code(s): G37.9 - Demyelinating disease of central nervous system, unspecified Status: Acute Assessment and Plan: Poorly documented in the patient cannot provide me with any specifics. He does have some pressure wounds on his feet and ankles thus will continue with protective boots. Wound nurse consulted for further recommendations. Subjective Date/time seen: 10/30/21 12:45 Doing well Exam Narrative: General: Thin and frail. Weight: 58.9 kg. BMI: 18.6. HEENT: PERRL, EOMI. Conjunctivae anicteric. Tacky mucous membranes. Black hairy tongue. Neck: Supple. No lymphadenopathy. Respiratory: Respirations are nonlabored and lungs are clear to auscultation. Cardiovascular: Regular rate and rhythm with S1-S2. Gastrointestinal: Abdomen is soft, flat nontender, and nondistended with positive bowel sounds. No organomegaly. Skin: Warm and dry. Generalized pallor. There are some pressure points noted on the right lateral ankle and a dry eschar on the lateral side of the right foot. His left foot is wrapped and he would not let me unwrap it for exam. Extremities: No cyanosis, clubbing, or edema. Lower extremities are atrophied. Radial and pedal pulses intact. Neurological: Alert and oriented to name, age, and date of . He is aware that he is in the hospital but does not know why he was brought here. Cranial nerves 2-12 are grossly intact. Speech is clear. No facial asymmetry. 4/5 strength in the upper extremities though his effort was not the best. He is not able to lift his legs off of the bed but he was able to externally rotate his hips somewhat and bend his right knee up. He reports being neurovascular intact in the lower limbs. Psychiatric: Poor eye contact. Despondent with depressed mood. Speech is pressured with tangential thoughts, occasionally circumferential though he is not a great historian. Objective Data Vital Signs Vital Signs: Vital Signs - 24 hr 10/29/21 14:29 10/29/21 16:00 10/29/21 19:54 Temperature 98.1 F Pulse Rate 97 97 Respiratory Rate 22 H 22 H Blood Pressure 99/63 L Pulse Oximetry 96 96 Oxygen Delivery Room Air 10/30/21 00:00 10/30/21 09:03 10/30/21 08:00 Temperature 98.3 F Pulse Rate 87 85 Respiratory Rate 16 Blood Pressure 102/65 Pulse Oximetry 94 Oxygen Delivery Room Air 10/30/21 08:00 Temperature 97.7 F Pulse Rate 79 Respiratory Rate 16 Blood Pressure 111/79 Pulse Oximetry 97 Oxygen Delivery Intake/Output Intake/Output: Intake & Output 10/27/21
[2021-10-30 16:00] VITALS: BP 96/70; PULSE 94; RESP 16; TEMP 36.5; O2SAT 99
[2021-10-30] MEDS: TAMSULOSIN HCL 0.4 MG CAPSULE PO (17:14)
[2021-10-30 20:00] VITALS: PULSE 90; RESP 18; O2SAT 95
[2021-10-30 20:38] VITALS: BP 111/66; PULSE 90; RESP 18; TEMP 36.4; O2SAT 95
[2021-10-30] MEDS: AMOXICILLIN/CLAVULANATE K 875-125 MG TAB 1 TABLET PO (20:42)
[2021-10-31] MEDS: HYDROcodone/acetaminophen (*CRX) 5-325 MG TABLET 1 TAB PO ×4 (01:51→13:14)
[2021-10-31 04:00] VITALS: BP 110/74; PULSE 84; RESP 16; TEMP 36.8; O2SAT 96
[2021-10-31 08:00] VITALS: PULSE 90; RESP 18; O2SAT 95
[2021-10-31 08:03] VITALS: BP 112/77; PULSE 78; RESP 12; O2SAT 96
[2021-10-31] MEDS: MAGNESIUM OXIDE 400 MG TABLET PO (09:09)
[2021-10-31] MEDS: chlordiazePOXIDE (*CRX) 10 MG CAPSULE PO (09:09)
[2021-10-31] MEDS: levETIRAcetam 500 MG TABLET PO (09:09)
[2021-10-31 09:10] VITALS: PULSE 78
[2021-10-31] MEDS: AMOXICILLIN/CLAVULANATE K 875-125 MG TAB 1 TABLET PO (09:10)
[2021-10-31] MEDS: METOPROLOL SUCCINATE EXT REL 100 MG TABCR PO (09:10)
[2021-10-31] MEDS: THERAPEUTIC MULTIVITAMINS/MINERALS TAB (*BKC) 1 TABLET PO (09:10)
[2021-10-31] MEDS: ENOXAPARIN 40 MG/0.4 ML SYRINGE SUB-Q (09:11)
[2021-10-31] MEDS: ZIPRASIDONE HCL 20 MG CAPSULE PO (09:11)
[2021-10-31] MEDS: GABAPENTIN 300 MG CAPSULE PO ×2 (09:11→13:15)
[2021-10-31] MEDS: THIAMINE HCL 100 MG TABLET PO (09:11)
--- NOTE | 2021-10-31 12:32 | PM.DS ---
DS: Admitting Diagnosis Discharge Date October 31, 2021 Admitting Diagnosis Pneumonia, suicidal ideation DS: Discharge Diagnosis Discharge Diagnosis (1) Pneumonia involving left lung: Code(s): J18.9 - Pneumonia, unspecified organism Status: Acute Assessment and Plan: Augmentin on discharge. (2) Suicidal ideation: Code(s): R45.851 - Suicidal ideations Status: Acute Assessment and Plan: Patient has denies any suicidal ideations and last 48 hr. Safety contract was issued by crisis. Patient can be discharged back to facility according to them. (3) Hallucination: Code(s): R44.3 - Hallucinations, unspecified Status: Acute Assessment and Plan: Improved (4) Seizure disorder: Code(s): G40.909 - Epilepsy, unspecified, not intractable, without status epilepticus Status: Acute Assessment and Plan: History of, continue home meds (5) Hypertension: Code(s): I10 - Essential (primary) hypertension Status: Acute Assessment and Plan: Blood pressures were reviewed and they are stable. Antihypertensives will be reviewed and resumed as appropriate. (6) Demyelinating disease of central nervous system: Code(s): G37.9 - Demyelinating disease of central nervous system, unspecified Status: Acute Assessment and Plan: Poorly documented in the patient cannot provide me with any specifics. He does have some pressure wounds on his feet and ankles thus will continue with protective boots. Wound nurse consulted for further recommendations. DS: Summary Hospital Course Hospital Course: Patient was admitted for suicidal ideation. Evaluation the ER did reveal pneumonia. Patient started on Rocephin azithromycin IV. He never required any respiratory support. Patient was evaluated by crisis and the last 48 hr he has not had any suicidal ideations. Safety contract was executed then patient can be sent back to facility. He will be sent on Augmentin for 3 more days on discharge for is pneumonia. Time Spent with Patient Time attestation: Total time spent providing and/or coordinating discharge services: Exam Narrative: General: Thin and frail. Weight: 58.9 kg. BMI: 18.6. HEENT: PERRL, EOMI. Conjunctivae anicteric. Tacky mucous membranes. Black hairy tongue. Neck: Supple. No lymphadenopathy. Respiratory: Respirations are nonlabored and lungs are clear to auscultation. Cardiovascular: Regular rate and rhythm with S1-S2. Gastrointestinal: Abdomen is soft, flat nontender, and nondistended with positive bowel sounds. No organomegaly. Skin: Warm and dry. Generalized pallor. There are some pressure points noted on the right lateral ankle and a dry eschar on the lateral side of the right foot. His left foot is wrapped and he would not let me unwrap it for exam. Extremities: No cyanosis, clubbing, or edema. Lower extremities are atrophied. Radial and pedal pulses intact. Neurological: Alert and oriented to name, age, and date of . He is aware that he is in the hospital but does not know why he was brought here. Cranial nerves 2-12 are grossly intact. Speech is clear. No facial asymmetry. 4/5 strength in the upper extremities though his effort was not the best. He is not able to lift his legs off of the bed but he was able to externally rotate his hips somewhat and bend his right knee up. He reports being neurovascular intact in the lower limbs. Psychiatric: Poor eye contact. Denies SI or HI Discharge Plan Discharge Attending physician on discharge: Eddie Cash Discharging Clinician: Eddie Cash Patient Disposition: Home, Self-Care Activity: no preference Diet: as tolerated Stand Alone Forms: General Discharge Information Follow-up/Referrals: Luisa Swanson RN [Emergency Nurse] - Discharge Medications: New amoxicillin-pot clavulanate 875-125 mg tablet 1 tablet PO Q12H 3 Days Q
[2021-10-31 13:05] LABS: EDCOVIDSCREEN Negative (Negative)
[2021-10-31] MEDS: COLLAGENASE OINT 30 GM TUBE 1 APPLIC TOPICAL (15:10)
[2021-10-31 18:32] LABS: Pneumococcal Antigen Urine Not Detected (Not Detected)
[2021-11-01 21:27] LABS: Legionella pneumophila Ag Ur Not Detected (Not Detected)
== END 2021-10-31 15:30 | DRG 139 ==
LOC: ANHED 12:27 → ANH3MEDSUR 15:22 → ANHICU 22:19
PROVIDERS: Physician Assistant; Admitting Provider Chiropractor; Emergency Provider Emergency Medicine; Visit Provider Chiropractor
DX: J18.9 Pneumonia, unspecified organism (principal); R45.851 Suicidal ideations; R44.3 Hallucinations, unspecified; F29 Unspecified psychosis not due to a substance or known physiological condition; G40.909 Epilepsy, unspecified, not intractable, without status epilepticus; I10 Essential (primary) hypertension; G37.9 Demyelinating disease of central nervous system, unspecified; Z20.822 Contact with and (suspected) exposure to COVID-19; L89.890 Pressure ulcer of other site, unstageable; L89.623 Pressure ulcer of left heel, stage 3; L89.526 Pressure-induced deep tissue damage of left ankle; Z86.711 Personal history of pulmonary embolism; Z87.891 Personal history of nicotine dependence
CPT/HCPCS: 36415; 51701; 71045; 80053; 80307; 81003; 82607; 82746; 83735; 84443; 85025; 85027; 85610; 87070; 87205; 87426; 87449; 87899; 93005; 96365; 96367; 96372; 96375; 99285; A9270; C9803; G0378; G0379; J0456; J0696; J1650; J2270; J7030; U0003; U0005